=== PATIENT | male | born 1970 | race Caucasian/White ===

== ENCOUNTER 2016-12-18 18:07 | Emergency (ER) | payer OTHER ==
[2016-12-18] MEDS ORDERED: Nitroglycerin 0.4 MG Tab.SL ONE (18:13)
[2016-12-18] MEDS: Nitroglycerin 0.4 MG Tab.SL SL PRN ×2 (18:24→18:37)
--- NOTE | 2016-12-18 18:26 | EDM.PDOC ---
ED HISTORY OF PRESENT ILLNESS - General Stated Complaint: CHEST PAIN Time Seen by Provider: 12/18/16 18:07 Source of Information: Reports: Patient, EMS History Limitations: Reports: No limitations - History of Present Illness INITIAL COMMENTS - FREE TEXT/NARRATIVE: Patient arrives via ambulance with chest pain and left shoulder pain. En route he has received ASA 81 x 4, one SL nitro and 4 mg of morphine. Pt and his tell me that he arrived home from work and started feeling hot and dizzy at about 1720. He went to the bathroom and when he came out he told his he wasn't feeling well and thought he might pass out. He sat down and was holding his chest. He says it felt like an elephant was on his chest and he was short of breath. Pain at the worst was 10/10. Currently in ER it is 2/10. He feels much better right now. He says he has had blackouts occasionally (his says 1-2/year) but has never had the chest pain. He has diabetes and elevated triglycerides but no history of heart problems or MD. He has been in ER after a blackout with a concussion from falling in the past year. Glucose was 165 at home per . says he didn't blackout today as she noticed he was sitting in chair with eyes closed but talked with her throughout. He has a family history significant for polycythemia and early MD in father and grandfather. His hemoglobin runs a little high and he treates with daily aspirin. He also had a DVT in one leg two years ago after ACL surgery. - Related Data Allergies/ADRs: Allergies Allergy/AdvReac Type Severity Reaction Status Date / Time levofloxacin [From Levaquin] Allergy Confusion Verified 12/18/16 18:48 Home Meds: Home Meds Cyclobenzaprine [Flexeril] 10 mg PO BEDTIME PRN 12/31/15 [History] metFORMIN HCl [Metformin HCl ER] 500 mg PO BEDTIME 12/31/15 [History] traZODone 50 mg PO BEDTIME PRN 12/31/15 [History] Aspirin [Halfprin] 81 mg PO DAILY 07/02/16 [History] Fenofibrate Nanocrystallized [Tricor] 145 mg PO DAILY 07/02/16 [History] metFORMIN HCl [Metformin HCl] 1,000 mg PO DAILY 12/18/16 [History] Past Medical History HEENT History: Reports: Impaired vision, Other (see below) Other HEENT History: prosthetic left eye, 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3 Cardiovascular History: Reports: Blood clots/VTE/DVT, Other (see below) Other Cardiovascular History: blood clot to Rlower leg 1 year ago Neurological History: Reports: Headaches, chronic Endocrine/Metabolic History: Reports: Diabetes, type II - Past Surgical History Musculoskeletal Surgical History: Reports: Other (see below) Other Musculoskeletal Surgeries/Procedures:: achilis tendon repair Social & Family History - Family History Cardiac: Reports: CAD, [place] Other Cardiac Family History: polycythemia - Tobacco Use Smoking Status *Q: Current Every Day Smoker Years of Tobacco use: 30 Packs/Tins Daily: 0.5 Used Tobacco, but Quit: No Second Hand Smoke Exposure: No - Recreational Drug Use Recreational Drug Use: No ED ROS GENERAL - Review of Systems Review Of Systems: See Below Constitutional: Reports: malaise, diaphoresis. 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 Denies: Cough Cardiovascular: Reports: Chest pain, Lightheadedness. Denies: Syncope GI/Abdominal: Denies: Abdominal pain : Reports: no symptoms Musculoskeletal: Reports: neck pain (left), shoulder pain (left), arm pain (left ) Skin: Reports: diaphoresis. Denies: cyanosis, jaundice, mottled Neurological: Reports: Confusion (slightly at the scene; he told EMS it was November but now doesn't remember that and says it is November). 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) Ears: normal external exam, hearing grossly normal Nose: normal inspection Throat/Mouth: Normal lips, Normal voice, No airway compromise Head: atraumatic, normocephalic Neck: normal inspection, supple, non-tender, full range of motion Respiratory/Chest: no respiratory distress, lungs clear, normal breath sounds, no accessory muscle use Cardiovascular: normal peripheral pulses, regular rate, rhythm, no edema, no gallop, no JVD, no murmur Peripheral Pulses: 2+: carotid (L), carotid (R), radial (L), radial (R), posterior tibial (L), posterior tibial (R) GI/Abdominal: normal bowel sounds, soft, non tender Extremities: normal inspection, normal range of motion, non-tender, no pedal edema Neurological: alert, oriented, CN II-XII intact, normal cognition, no motor/ sensory deficits Psychiatric: normal affect, normal mood Skin Exam: Warm, Dry, Intact, Normal color, No rash Course - Orders/Labs/Meds Meds: Medications Discontinued Medications Generic Name Dose Route Start Last Admin Trade Name Vimal PRN Reason Stop Dose Admin Nitroglycerin Confirm 12/18/16 18:13 Nitrostat Administered 12/18/16 18:14 Dose 0.4 mg .ROUTE .STK-MED ONE - Re-Assessments/Exams Free Text/Narrative Re-Assessment/Exam: 12/18/16 19:10 Patient reports pain and heaviness mostly gone after nitro x 3. He still reported a tightness in left chest 3-4/10. EKG is normal. Trop is 0.06 which was drawn 30 minutes after symptom onset. Discussed this with patient and then with Dr. Webster (railroad police) and Dr. Payne (hospitalist) at [facility] in [place]. They recommend heparin bolus and metoprolol and accepted for transfer. Prior to discharge patient reports the tightness is mostly gone and the pain/ heaviness has not returned. Patient discharged in stable condition via ALS ambulance to [facility]. Departure - Departure Time of Disposition: 19:07 Disposition: DC/Tfer to Acute Hospital 02 Reason for Transfer *Q: Other (cardiac consult with possible angiogram) Condition: good, serious Clinical Impression: Chest pain Qualifiers: Chest pain type: unspecified Qualified Code(s): R07.9 - Chest pain, unspecified
[2016-12-18 18:42] LABS: CHLORIDE,CL 96 mmol/L (98-115); SODIUM,NA 134 mmol/L (136-145)
[2016-12-18] MEDS ORDERED: Heparin Sodium 5,000 Units/ML Vial IVPUSH ONE (19:04)
[2016-12-18] MEDS ORDERED: Metoprolol Tartrate 25 MG Tab PO ONE (19:05)
[2016-12-18] MEDS ORDERED: Metoprolol Tartrate 50 MG Tab ONE (19:19)
[2016-12-18 19:57] VITALS: BP 127/67
== END 2016-12-18 19:30 ==
LOC: KA.ED 18:07
DX: R07.9 Chest pain, unspecified (principal); F17.210 Nicotine dependence, cigarettes, uncomplicated; Z88.8 Allergy status to other drugs, medicaments and biological substances; Z79.82 Long term (current) use of aspirin; Z79.899 Other long term (current) drug therapy; E11.9 Type 2 diabetes mellitus without complications
CPT/HCPCS: 36415; 71010; 80048; 84484; 85025; 85379; 96374; 99285; A9270; J1644; 93005

== ENCOUNTER 2017-01-18 13:45 | Observation (INO) | payer OTHER ==
[2017-01-18] MEDS ORDERED: Aspirin 81 MG Tab.Chew PO ONE (13:52)
[2017-01-18] MEDS ORDERED: Sodium Chloride 0.9% 5 ML Syringe FLUSH PRN ×2 (13:52→15:30)
[2017-01-18] MEDS ORDERED: Nitroglycerin 2% Oint 1 GM UD Packet TOP ONE (13:52)
--- NOTE | 2017-01-18 13:54 | EDM.PDOC ---
ED HISTORY OF PRESENT ILLNESS - General Chief Complaint: Chest Pain Stated Complaint: chest pain Time Seen by Provider: 01/18/17 13:45 Source of Information: Reports: Patient, EMS History Limitations: Reports: No limitations - History of Present Illness INITIAL COMMENTS - FREE TEXT/NARRATIVE: 46 YO WM presents to ER by EMS from clinic with chest pain. Pt reports pain began at approximately 10am today. Pt reports left sided chest pain with radiation to left shoulder. Pt reports associated nausea and dizziness but denies diaphoresis or shortness of breath. pt was seen by a carton filler in [place] 1 month ago and had a stress test at that time. Pt reports he was sent home on Nitro but didn't take any this am. Pt was given nitro in clinic x 1 and reports partial relief. Symptom Onset Date: 01/18/17 Symptom Onset Time: 10:00 Timing/Duration: Reports: Day(s): (1) Severity: mild Location, General: Reports: chest Quality: Reports: Ache, Pressure Improves with: Reports: Medication Worsens with: Reports: None Associated Symptoms (General): Reports: chest pain, nausea/vomiting. 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[employer]: Reports: Nitroglycerin, See EMS Report - Related Data Allergies/ADRs: Allergies Allergy/AdvReac Type Severity Reaction Status Date / Time levofloxacin [From Levaquin] Allergy Confusion Verified 01/18/17 14:00 Home Meds: Home Meds Cyclobenzaprine [Flexeril] 10 mg PO BEDTIME PRN 12/31/15 [History] traZODone 50 mg PO BEDTIME PRN 12/31/15 [History] Aspirin [Halfprin] 162 mg PO DAILY 07/02/16 [History] Fenofibrate Nanocrystallized [Tricor] 145 mg PO DAILY 07/02/16 [History] metFORMIN HCl [Metformin HCl] 1,000 mg PO BID 12/18/16 [History] Lisinopril 5 mg PO DAILY 01/18/17 [History] Nicotine [Nicotine Patch] 1 patch TD DAILY 01/18/17 [History] atorvaSTATin [Lipitor] 40 mg PO BEDTIME 01/18/17 [History] Past Medical History HEENT History: Reports: Impaired vision, Other (see below) Other HEENT History: prosthetic left eye, 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3 Cardiovascular History: Reports: Blood clots/VTE/DVT, Other (see below) Other Cardiovascular History: blood clot to Rlower leg 1 year ago Neurological History: Reports: Headaches, chronic Endocrine/Metabolic History: Reports: Diabetes, type II - Past Surgical History Musculoskeletal Surgical History: Reports: Other (see below) Other Musculoskeletal Surgeries/Procedures:: achilis tendon repair Social & Family History - Family History Cardiac: Reports: CAD, [place] Other Cardiac Family History: polycythemia - Tobacco Use Smoking Status *Q: Current Every Day Smoker Years of Tobacco use: 30 Packs/Tins Daily: 0.5 Used Tobacco, but Quit: No Second Hand Smoke Exposure: No - Caffeine Use Caffeine Use: Reports: None - Recreational Drug Use Recreational Drug Use: No ED ROS GENERAL - Review of Systems Review Of Systems: See Below Constitutional: Reports: no symptoms HEENT: Reports: No symptoms Respiratory: Reports: No Symptoms Cardiovascular: Reports: Chest pain, Lightheadedness Endocrine: Reports: no symptoms GI/Abdominal: Reports: Nausea Musculoskeletal: Reports: no symptoms Skin: Reports: no symptoms Neurological: Reports: No Symptoms Psychiatric: Reports: No symptoms Hematologic/Lymphatic: Reports: no symptoms Immunologic: Reports: no symptoms ED EXAM, GENERAL - Physical Exam Exam: See Below Exam Limited By: No limitations General Appearance: alert, WD/WN, no apparent distress Nose: normal inspection, normal mucosa, no blood Throat/Mouth: Normal inspection, Normal lips, Normal teeth, Normal gums, Normal oropharynx, Normal voice, No airway compromise Head: atraumatic, normocephalic Neck: normal inspection, supple, non-tender, full range of motion Respiratory/Chest: no respiratory distress, lungs clear, normal breath sounds, no accessory muscle use, chest non-tender Cardiovascular: normal peripheral pulses, regular rate, rhythm, no edema, no gallop, no JVD, no murmur, no rub GI/Abdominal: normal bowel sounds, soft, non tender, no organomegaly, no distention, no abnormal bruit, no mass Back Exam: normal inspection, full range of motion, NT Extremities: normal inspection, normal range of motion, non-tender, normal capillary refill, no pedal edema Neurological: alert, oriented, CN II-XII intact, normal cognition, normal gait, normal reflexes, no motor/sensory deficits Psychiatric: normal affect, normal mood Skin Exam: Warm, Dry, Intact, Normal color, No rash Lymphatic: no adenopathy EKG INTERPRETATION EKG Date: 01/18/17 Time: 13:51 Rhythm: NSR Rate (beats/min): 88 [place]: normal P-wave: present QRS: normal ST-T: normal QT: normal Comparison: NA - no prior EKG Course - Vital Signs Last Recorded V/S: Last Vital Signs Temp 37.2 C 01/18/17 14:12 Pulse 91 01/18/17 14:12 Resp 16 01/18/17 14:12 BP 112/83 01/18/17 14:12 Pulse Ox 96 01/18/17 14:12 - Orders/Labs/Meds Orders: Active Orders 24 hr Category Date Time Status EKG Documentation Completion [RC] ASDIRECTED Care 01/18/17 13:53 Active Peripheral IV Care [RC] . DIRECTED Care 01/18/17 13:53 Active Chest 1V Frontal [CR] Stat Exams 01/18/17 13:52 Taken Sodium Chloride 0.9% [Syrex Flush] Med 01/18/17 13:52 Active 5 ml FLUSH Q8HR PRN Peripheral IV Insertion Adult [OM.PC] Routine Oth 01/18/17 13:52 Ordered EKG 12 Lead [EK] Routine Ther 01/18/17 13:53 Ordered Medication Orders Sodium Chloride (Syrex Flush) 5 ml FLUSH Q8HR PRN PRN Reason: Keep Vein Open Labs: Laboratory Tests 01/18/17 01/18/17 01/18/17 Range/Units 14:10 14:10 14:10 WBC 11.0 H (5.0-10.0) 10^3/uL RBC 6.10 H (4.50-6.00) 10^6/uL Hgb 17.8 H (13.0-17.0) g/dL Hct 53.0 H (40.0-52.0) % MCV 86.8 (82.0-92.0) fL MCH 29.2 (27.0-31.0) pg MCHC 33.7 (32.0-36.0) g/dL RDW 12.6 (11.5-14.5) % Plt Count 254 (150-300) 10^3/uL MPV 8.1 (7.4-10.4) fL Neut % (Auto) 78.2 H (50.0-70.0) % Lymph % (Auto) 14.8 L (20.0-40.0) % [place] % (Auto) 6.3 (2.0-8.0) % Eos % (Auto) 0.5 L (1.0-3.0) % Baso % (Auto) 0.2 (0.0-1.0) % Neut # (Auto) 8.6 H (2.5-7.0) 10^3/uL Lymph # (Auto) 1.6 (1.0-4.0) 10^3/uL [place] # (Auto) 0.7 (0.1-0.8) 10^3/uL Eos # (Auto) 0.1 (0.1-0.3) 10^3/uL Baso # (Auto) 0.0 (0.0-0.1) 10^3/uL PT 11.0 (8.9-11.4) SEC INR 1.1 (0.9-1.1) APTT 22.5 (20.8-31.2) SEC Sodium 136 (136-145) mmol/L Potassium 4.9 (3.3-5.3) mmol/L Chloride 97 L (98-115) mmol/L Carbon Dioxide 30.8 (21.0-32.0) mmol/L BUN 19 (6-25) mg/dL Creatinine 1.09 (0.51-1.17) mg/dL Est Cr Clr Drug Dosing 82.80 mL/min Estimated GFR (MDRD) > 60 mL/min Glucose 206 H (70-110) mg/dL Calcium 9.5 (8.7-10.3) mg/dL Total Bilirubin 0.9 (0.2-1.0) mg/dL AST 15 (15-37) U/L ALT 24 (12-78) U/L Alkaline Phosphatase 76 (46-116) IU/L Creatine Kinase 52 (26-276) U/L CK-MB (CK-2) 0.70 (0.00-4.30) ng/mL Troponin I < 0.04 (0.00-0.070) ng/mL Total Protein 7.3 (6.4-8.2) g/dL Albumin 4.10 (3.00-4.80) g/dL Meds: Medications Generic Name Dose Route Start Last Admin Trade Name Freluis PRN Reason Stop Dose Admin Sodium Chloride 5 ml 01/18/17 13:52 Syrex Flush FLUSH Q8HR PRN Keep Vein Open Discontinued Medications Generic Name Dose Route Start Last Admin Trade Name Freluis PRN Reason Stop Dose Admin Aspirin 324 mg 01/18/17 13:52 01/18/17 14:06 Aspirin PO 01/18/17 13:53 324 mg ONETIME ONE Administration Nitroglycerin 1 gm 01/18/17 13:52 01/18/17 14:07 Nitro-Bid 2% TOP 01/18/17 13:53 1 gm ONETIME ONE Administration Nitroglycerin Confirm 01/18/17 14:02 01/18/17 14:08 Nitro-Bid 2% Administered 01/18/17 14:03 Not Given Dose 1 gm .ROUTE .STK-MED ONE - Radiology Interpretation Free Text/Narrative:: CXR- NAD Departure - Departure Time of Disposition: 14:59 Disposition: Refer to Observation Condition: fair Clinical Impression: Chest pain Qualifiers: Chest pain type: unspecified Qualified Code(s): R07.9 - Chest pain, unspecified Referrals: Karina Frazier PA-C [Primary Care Provider] - - My Orders Last 24 Hours: My Active Orders 01/18/17 13:52 Chest 1V Frontal [CR] Stat Sodium Chloride 0.9% [Syrex Flush] 5 ml FLUSH Q8HR PRN Peripheral IV Insertion Adult [OM.PC] Routine 01/18/17 13:53 EKG Documentation Completion [RC] ASDIRECTED Peripheral IV Care [RC] . DIRECTED EKG 12 Lead [EK] Routine - Assessment/Plan Last 24 Hours: My Active Orders 01/18/17 13:52 Chest 1V Frontal [CR] Stat Sodium Chloride 0.9% [Syrex Flush] 5 ml FLUSH Q8HR PRN Peripheral IV Insertion Adult [OM.PC] Routine 01/18/17 13:53 EKG Documentation Completion [RC] ASDIRECTED Peripheral IV Care [RC] . DIRECTED EKG 12 Lead [EK] Routine Assessment:: 1. chest pain 2. NIDDM Plan: 1. Admit for obs and r/o AMI 2. [facility] accepted and will manage
[2017-01-18] MEDS ORDERED: Nitroglycerin 2% Oint 1 GM UD Packet ONE (14:02)
[2017-01-18 14:44] LABS: CHLORIDE,CL 97 mmol/L (98-115); SODIUM,NA 136 mmol/L (136-145)
[2017-01-18] MEDS ORDERED: Nitroglycerin 0.4 MG Tab.SL SL PRN (16:53)
[2017-01-18] MEDS ORDERED: Lidocaine 2% 100 MG/5 ML Syringe IVPUSH PRN (16:53)
[2017-01-18] MEDS ORDERED: EPINEPHrine 1:10,000 1 MG/10 ML Syringe IVPUSH PRN (16:53)
[2017-01-18] MEDS ORDERED: Atropine 0.1 MG/ML 10 ML Syringe IVPUSH PRN (16:53)
[2017-01-18] MEDS ORDERED: Acetaminophen 325 MG Tab PO PRN (19:34)
[2017-01-18] MEDS ORDERED: Acetaminophen 650 MG Tab.ER ONE (19:44)
[2017-01-18] MEDS ORDERED: Cyclobenzaprine 5 MG Tab PO PRN (21:35)
[2017-01-18] MEDS ORDERED: traZODone 50 MG Tab PO PRN (21:35)
[2017-01-18] MEDS ORDERED: Ibuprofen 600 MG Tab PO PRN (21:50)
[2017-01-18] MEDS ORDERED: Fenofibrate Nanocrystallized 145 MG Tab PO SCH (22:30)
[2017-01-18] MEDS ORDERED: atorvaSTATin 10 MG Tab ONE (22:40)
[2017-01-18] MEDS: metFORMIN 500 MG Tab PO SCH (22:43)
[2017-01-18] MEDS ORDERED: atorvaSTATin 40 MG Tab PO SCH (22:45)
[2017-01-19 06:59] VITALS: BP 110/73
[2017-01-19] MEDS ORDERED: metFORMIN 500 MG Tab PO SCH (08:00)
[2017-01-19] MEDS: metFORMIN 500 MG Tab PO SCH (08:51)
[2017-01-19] MEDS ORDERED: Aspirin 81 MG Tab.EC PO SCH (09:00)
[2017-01-19] MEDS ORDERED: Lisinopril 5 MG Tab PO SCH (09:00)
[2017-01-19] MEDS ORDERED: Nicotine 7 MG/24 Hr Patch TOP SCH (09:00)
[2017-01-19] MEDS ORDERED: Fenofibrate Nanocrystallized 145 MG Tab PO SCH ×2 (09:00→21:00)
--- NOTE | 2017-01-19 09:26 | PCM.HP ---
H&P History of Present Illness - General Date of Service: 01/19/17 Source of Information: Old records, Provider, RN History Limitations: Reports: No limitations - History of Present Illness Quality: Reports: Dull Chest Pain Score (Numeric/FACES): 0 - Related Data Allergies/Adverse Reactions: Allergies Allergy/AdvReac Type Severity Reaction Status Date / Time levofloxacin [From Levaquin] Allergy Confusion Verified 01/18/17 14:00 Home Medications: Home Meds Cyclobenzaprine [Flexeril] 10 mg PO BEDTIME PRN 12/31/15 [History] traZODone 50 - 100 mg PO BEDTIME PRN 12/31/15 [History] Fenofibrate Nanocrystallized [Tricor] 145 mg PO DAILY 07/02/16 [History] Lisinopril 5 mg PO DAILY 01/18/17 [History] Nicotine [Nicotine Patch] 14 mg TD DAILY 01/18/17 [History] atorvaSTATin [Lipitor] 40 mg PO BEDTIME 01/18/17 [History] Aspirin [Halfprin] 81 mg PO DAILY #90 01/19/17 [Rx] Nitroglycerin [Nitrostat] 0.4 mg SL Q5M PRN 01/19/17 [History] metFORMIN HCl [Metformin HCl ER] 1,000 mg PO BIDMEALS 01/19/17 [History] Past Medical History HEENT History: Reports: Impaired vision, Other (see below) Other HEENT History: prosthetic left eye, 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3 Cardiovascular History: Reports: Blood clots/VTE/DVT, High cholesterol, Hypertension, [place], Other (see below) Other Cardiovascular History: blood clot to Rlower leg 1 year ago; hx of PE Neurological History: Reports: Headaches, chronic Endocrine/Metabolic History: Reports: Diabetes, type II - Past Surgical History HEENT Surgical History: Reports: None Musculoskeletal Surgical History: Reports: Arthroscopic procedure, Other (see below) Other Musculoskeletal Surgeries/Procedures:: achilis tendon repair; bicep and rotater cuff repair Social & Family History - Family History Family Medical History: Noncontributory Cardiac: Reports: CAD, [place] Other Cardiac Family History: polycythemia - Tobacco Use Smoking Status *Q: Current Every Day Smoker Years of Tobacco use: 30 Packs/Tins Daily: 0.5 Used Tobacco, but Quit: No Second Hand Smoke Exposure: No - Caffeine Use Caffeine Use: Reports: Soda - Recreational Drug Use Recreational Drug Use: No H&P Review of Systems - Review of Systems: Review Of Systems: See Below Gastrointestinal: Reports: Diarrhea (he gets diarrhea after not having eating for any lengthy periord of time. ) Genitourinary: Reports: no symptoms Musculoskeletal: Reports: no symptoms Skin: Reports: no symptoms Psychiatric: Reports: no symptoms Exam - Exam Exam: See Below - Vital Signs Vital Signs: Last Vital Signs Temp 96.4 F 01/19/17 06:59 Pulse 80 01/19/17 06:59 Resp 16 01/19/17 06:59 BP 110/73 01/19/17 08:52 Pulse Ox 99 01/19/17 06:59 Weight: 173 lb - Exam General: alert, oriented, 4 Neck: supple, trachea midline, 2 Lungs: Clear to auscultation, Normal respiratory effort - Patient Data Lab Results last 24 hrs: Laboratory Results - last 24 hr 01/18/17 01/19/17 Range/Units 21:09 06:36 POC Glucose 183 H 195 H (74-106) mg/dl Result Diagrams: 01/18/17 14:10 01/18/17 14:10 *Q Meaningful Use (ADM) - VTE *Q VTE Criteria *Q: - Stroke *Q Stroke Criteria *Q: - AMI *Q AMI Criteria *Q: Problem List Initiated/Reviewed/Updated: Yes Orders Last 24hrs: Active Orders 24 hr Category Date Time Status Blood Glucose Check, Bedside [RC] 0700,1700 Care 01/18/17 23:27 Active Acetaminophen [Tylenol] Med 01/18/17 19:34 Active 325 - 650 mg PO Q4H PRN Aspirin [Halfprin] Med 01/19/17 09:00 Active 162 mg PO DAILY Atropine [Atropine 0.1 MG/ML] Med 01/18/17 16:53 Active 0 mg IVPUSH ASDIRECTED PRN Cyclobenzaprine [Flexeril] Med 01/18/17 21:35 Active 10 mg PO BEDTIME PRN EPINEPHrine [EPINEPHrine 1:10,000] Med 01/18/17 16:53 Active 1 mg IVPUSH ASDIRECTED PRN Fenofibrate Nanocrystallized [Tricor] Med 01/19/17 21:00 Active 145 mg PO BEDTIME Ibuprofen [Motrin] Med 01/18/17 21:50 Active 600 mg PO Q6H PRN Lidocaine 2% [Xylocaine 2%] Med 01/18/17 16:53 Active 0 mg IVPUSH ASDIRECTED PRN Lisinopril [Prinivil] Med 01/19/17 09:00 Active 5 mg PO DAILY Nicotine [Habitrol] Med 01/19/17 09:00 Active 7 mg TOP DAILY Nitroglycerin [Nitrostat] Med 01/18/17 16:53 Active 0.4 mg SL ASDIRECTED PRN atorvaSTATin [Lipitor] Med 01/18/17 22:45 Active 40 mg PO BEDTIME metFORMIN [Glucophage] Med 01/18/17 22:45 Active 1,000 mg PO BIDMEALS traZODone Med 01/18/17 21:35 Active 50 mg PO BEDTIME PRN Medication Orders Acetaminophen (Tylenol) 325 - 650 mg PO Q4H PRN PRN Reason: Pain Last Admin: 01/18/17 20:00 Dose: 650 mg Aspirin (Halfprin) 162 mg PO DAILY [facility] Last Admin: 01/19/17 08:52 Dose: 162 mg Atorvastatin Calcium (Lipitor) 40 mg PO BEDTIME [facility] Last Admin: 01/18/17 22:45 Dose: 40 mg Atropine Sulfate (Atropine 0.1 Mg/Ml) 0 mg IVPUSH ASDIRECTED PRN PRN Reason: Heart Cyclobenzaprine HCl (Flexeril) 10 mg PO BEDTIME PRN PRN Reason: Pain Epinephrine HCl (Epinephrine 1:10,000) 1 mg IVPUSH ASDIRECTED PRN PRN Reason: Heart Fenofibrate (Tricor) 145 mg PO BEDTIME [facility] Ibuprofen (Motrin) 600 mg PO Q6H PRN PRN Reason: Headache Last Admin: 01/18/17 22:05 Dose: 600 mg Lidocaine HCl (Xylocaine 2%) 0 mg IVPUSH ASDIRECTED PRN PRN Reason: Heart Lisinopril (Prinivil) 5 mg PO DAILY [facility] Last Admin: 01/19/17 08:52 Dose: 5 mg Metformin HCl (Glucophage) 1,000 mg PO BIDMEALS [facility] Last Admin: 01/19/17 08:51 Dose: 1,000 mg Admin: 01/18/17 22:43 Dose: 1,000 mg Nicotine (Habitrol) 7 mg TOP DAILY [facility] Last Admin: 01/19/17 08:53 Dose: Not Given Nitroglycerin (Nitrostat) 0.4 mg SL ASDIRECTED PRN PRN Reason: Heart Sodium Chloride (Syrex Flush) 5 ml FLUSH Q8HR PRN PRN Reason: Keep Vein Open Last Admin: 01/18/17 22:08 Dose: 5 ml Trazodone HCl (Trazodone) 50 mg PO BEDTIME PRN PRN Reason: Sleep
--- NOTE | 2017-01-19 13:58 | HP ---
This is an H and P and also a discharge summary on this patient. CHIEF COMPLAINT: Had chest pains yesterday. Chest pain-free now. HISTORY OF PRESENT ILLNESS: This 46-year-old patient with significant cardiovascular comorbidities, family history along with modifiable risk factors, presented to the [facility] yesterday morning with some chest pains. He stated he was driving in a car. However, his H and P from the [facility] states that he was at home resting. Anyway, he started having some left anterior chest pain radiating into his shoulders and arm. He had no concomitant shortness of breath. He did not take a nitroglycerin as he has had cardiac problems in the past. When he came to the [facility], EKG was done. There was some suspicion and so, he was sent over to the emergency room for further evaluation and workup. He was placed on telemetry and admitted for rule out AK on telemetry unit. Next, the patient was hospitalized in [facility] approximately one month ago for very similar chest pain. He had a Cardiolite stress test, an echo which was negative. However, the patient states that the physician told him he definitely had a myocardial infarction. However, this is debatable. He does have type 2 diabetes, hyperlipidemia. He does have anxiety. However, according to him and his spouse, it is well controlled. He does have a high-stress job. He is a type-A personality. In the ED, he was given some nitroglycerin paste. He said, over the time his chest pain almost completely resolved. The patient was hospitalized on 12/18 for very similar pain. He has described at that time that he had an elephant sitting on his chest with stabbing sensation, this was nonexertional. He did call an ambulance, and they gave a morphine and nitroglycerin which resolved his pain. He came back later here at the [facility] where he started having more chest pain. At that time, he was only given nitroglycerin and again, his chest pain got better. The patient does have significant family history with family members had before age 50 due to myocardial infarctions, which his father at age 60 due to heart attack. He is quite active and he actually is in the gym frequently, on treadmills without having any difficulties. PAST MEDICAL HISTORY: Hyperlipidemia; insomnia; diabetes mellitus type 2, uncontrolled, however improving; tobacco use, however much improved; polycythemia; history of rotator cuff tear; history of acute DVT. PAST SURGICAL HISTORY: Two rotator cuff tendon repair, excisional biopsy. SIGNIFICANT FAMILY HISTORY: Father early due to cardiac disease. SOCIAL HISTORY: Tobacco use: The patient uses chew with cayenne pepper. He is on nicotine patch. Alcohol use: Yes. Code status: Full code. ALLERGIES: Levaquin which gives him jitteriness, but light, with which he gets difficulty breathing. 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 REVIEW OF SYSTEMS: GENERAL: He is afebrile. He has no pain. CONSTITUTIONAL: Negative for any fatigue, malaise, weight gain, or weight loss. HEENT: No hearing loss. No sore throat. HEMATOLOGICAL: He is negative for any bleeding, but he does have a history of polycythemia. RESPIRATORY: No cough. No shortness of breath. CARDIOVASCULAR: No chest pain now. No radiating symptoms. GASTROINTESTINAL: He has no abdominal pain. No black or bloody stools. No change in bowel habits. GENITOURINARY: No dysuria. No trouble voiding. No hematuria. MUSCULOSKELETAL: Negative for any joint pain or any joint swelling. NEUROLOGICAL: No dizziness. PHYSICAL EXAMINATION: VITAL SIGNS: The patient has BMI of 26. Temperature is 96.4, blood pressure 110/73, heart rate 85, O2 sats 99 with a respiratory rate of 16. CV: Regular rate and rhythm. No murmur. No change in heart rhythm in lateral recumbent. LUNGS: Clear to auscultation. ABDOMEN: Soft, nontender. Good bowel tones. RECTAL: Deferred. EXTREMITIES: He has good radial pulses. NECK: Supple. No carotid bruit. NEUROLOGICAL: Cranial nerves, good. He has no edema. LABORATORY DATA: White count 11.0; hemoglobin 17.8; hematocrit 53; percent of neutrophils 78%, slightly elevated. INR 1.1. Sodium and potassium are normal. Chloride 97 and slightly low. Creatinine 1.09, creatinine clearance 82.8, glucose 195. Calcium, AST, ALT and alkaline phosphatase, normal. CK x1 is normal. Albumin 4.10, total protein 7.3. OTHER DIAGNOSTICS: Cardiolite treadmill one day imaging, dated 12/19: Basically essential normal stress. HOME MEDICATIONS: Nitroglycerin as needed, trazodone 50-100 mg p.o. at bedtime p.r.n., nicotine patch 14 mg transdermal daily, metformin 1 g p.o. b.i.d. with meals, Lipitor 40 mg at bedtime, lisinopril 5 mg p.o. daily, fenofibrate 145 mg p.o. daily, Flexeril 10 mg p.o. bedtime p.r.n., aspirin came in at 162 mg p.o. daily. HOSPITAL COURSE: The patient's hospital course was quite uneventful. He was on telemetry this morning when I discharged him. I did a mini stress, having him walk around with telemetry. No PVCs. No aberrancy. No chest pain. No shortness of breath. Vital signs are stable. He did not need any nitroglycerin. MEDICATION CHANGES/ADJUSTMENTS: Reduce aspirin from 162 to 81 mg p.o. daily with food. He can continue on all his other home medications. IMPRESSION: 1. Atypical chest pain, doubtful if cardiac etiology. However, it is concerning that nitroglycerin is improving on him. However, with recent treadmill Cardiolite stress test, aggressive risk factor modification was recommended to reduce his overall stress. Tobacco cessation. 2. Diabetes mellitus type 2, uncontrolled. Recent A1c, 8.9. However, family is stating this is improving. He did admit to coming off his diet. Continue with lisinopril. 3. Hyperlipidemia/hypertriglyceridemia. He is on fenofibrate and Lipitor 40 mg at bedtime. Recommend high-intensity statin and close followup with PCP. DISPOSITION: The patient will be discharged from the hospital. He is in observation. He is to take his nitroglycerin as needed. He will follow with the primary care provider and consult Pharmacy to go over all his medications and give the patient some education. I did suspect that patient does have high level of stress, however he feels this is under control. The patient may benefit from as-needed medication for this. We will see how he does on followup. At this time, he does not feel that it is warranted. If the patient does have to take nitroglycerin, he is to consult his medical provider or seek medical care right away. MEDICAL DECISION MAKIN minutes were spent on this discharge planning, preparing documents, educating patient and consulting with pharmacy. /[id number]/MODL
[2017-01-19] MEDS ORDERED: atorvaSTATin 40 MG Tab PO SCH (21:00)
== END 2017-01-19 10:15 | disposition home or self-care (01) ==
LOC: KA.ED 13:45 → KA.MS 15:40 → KA.ED 15:50
PROVIDERS: ADMIT Physician Assistant Medical; ATTEND Nurse Practitioner Family
DX: R07.89 Other chest pain (principal); E11.9 Type 2 diabetes mellitus without complications; E78.5 Hyperlipidemia, unspecified; Z88.1 Allergy status to other antibiotic agents; Z98.890 Other specified postprocedural states; Z72.0 Tobacco use; Z79.82 Long term (current) use of aspirin; Z79.84 Long term (current) use of oral hypoglycemic drugs; F17.210 Nicotine dependence, cigarettes, uncomplicated
CPT/HCPCS: 36415; 71010; 80053; 82550; 82553; 82962; 84484; 85025; 85610; 85730; 99285; A9270; 93005; G0378

== ENCOUNTER 2019-03-02 18:07 | Emergency (ER) | payer BC ==
[2019-03-02] MEDS ORDERED: Sodium Chloride 0.9% 10 ML Syringe FLUSH PRN (18:17)
--- NOTE | 2019-03-02 18:28 | EDM.PDOC ---
ED HPI GENERAL MEDICAL PROBLEM - General Chief Complaint: Cardiovascular Problem Stated Complaint: CHEST PAIN Time Seen by Provider: 03/02/19 18:12 Source of Information: Reports: Patient History Limitations: Reports: No Limitations - History of Present Illness INITIAL COMMENTS - FREE TEXT/NARRATIVE: Patient is a 48-year-old gentleman who presents to the emergency Department this evening via private vehicle for a complaint of chest pain. Patient describes chest pain as aching, with some shooting sensation toward his left jaw. Patient states that he forgot to take his Cardizem medication last 2 days. States he was running errands today in an air-conditioned vehicle and not outside in the heat, and developed a left-sided chest sensation. When he got home late this afternoon pain seemed to radiate to his left neck. His is a nurse here at the clinic and she had him take 1 nitroglycerin. He was given a little relief with the nitroglycerin, so she had him take another nitroglycerin. Pain then subsided, and they decided to come to emergency department for evaluation. Patient states he did feel nauseous during the episode but did not become diaphoretic, dizzy, or developed headache. Patient denies fever, upper respiratory symptoms, abdominal pain, out of country travel , lower extremity edema, or any trauma. 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: Nitroglycerin (2) chest pain Pain Score (Numeric/FACES): 7 - Related Data Allergies Allergy/AdvReac Type Severity Reaction Status Date / Time levofloxacin [From Levaquin] Allergy Confusion Verified 03/02/19 18:40 maltose Allergy Difficulty Verified 03/02/19 18:40 Breathing Home Meds: Home Meds Cyclobenzaprine [Flexeril] 10 mg PO BEDTIME PRN 12/31/15 [History] traZODone 100 mg PO BEDTIME PRN 12/31/15 [History] Fenofibrate Nanocrystallized [Tricor] 145 mg PO DAILY 07/02/16 [History] Lisinopril 5 mg PO DAILY 01/18/17 [History] Aspirin [Halfprin] 81 mg PO DAILY #90 01/19/17 [Rx] Nitroglycerin [Nitrostat] 0.4 mg SL Q5M PRN 01/19/17 [History] metFORMIN HCl [Metformin ER Osmotic] 1,000 mg PO BIDMEALS 01/19/17 [History] Diltiazem HCl [Cartia Xt] 120 mg PO DAILY 08/19/18 [History] Fish Oil/Holmen-3 Fatty Acids [Fish Oil 1,000 MG] 1,000 mg PO BID 08/19/18 [ History] Non-Formulary Medication [NF Drug] 1 each INJECT WEEKLY 08/19/18 [History] Ubidecarenone/Vitamin E [Co Q-10 50 MG Softgel] 1 cap PO DAILY 08/19/18 [History ] glipiZIDE [Glipizide ER] 5 mg PO BID 08/19/18 [History] Rosuvastatin Calcium 20 mg PO DAILY 03/02/19 [History] Past Medical History HEENT History: Reports: Impaired Vision, Other (See Below) Other HEENT History: prosthetic left eye, 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3 Cardiovascular History: Reports: Blood Clots/VTE/DVT, High Cholesterol, Hypertension, CT, Other (See Below) Other Cardiovascular History: blood clot to Rlower leg 1 year ago; hx of PE Neurological History: Reports: Headaches, Chronic Endocrine/Metabolic History: Reports: Diabetes, Type II - Past Surgical History Musculoskeletal Surgical History: Reports: Arthroscopic Procedure, Other (See Below) Social & Family History - Family History Family Medical History: Noncontributory Cardiac: Reports: CAD, CT Other Cardiac Family History: polycythemia - Caffeine Use Caffeine Use: Reports: Soda ED ROS GENERAL - Review of Systems Review Of Systems: ROS reveals no pertinent complaints other than HPI. Constitutional: Reports: No Symptoms HEENT: Reports: No Symptoms Respiratory: Reports: No Symptoms Cardiovascular: Reports: Chest Pain Endocrine: Reports: No Symptoms GI/Abdominal: Reports: Nausea : Reports: No Symptoms Musculoskeletal: Reports: No Symptoms Skin: Reports: No Symptoms Neurological: Reports: No Symptoms Psychiatric: Reports: No Symptoms Hematologic/Lymphatic: Reports: No Symptoms Immunologic: Reports: No Symptoms ED EXAM, GENERAL - Physical Exam Exam: See Below Exam Limited By: No Limitations General Appearance: Alert, WD/WN, No Apparent Distress Eye Exam: Bilateral Eye: Normal Inspection Nose: Normal Inspection, Normal Mucosa, No Blood Throat/Mouth: Normal Inspection, Normal Oropharynx, No Airway Compromise Head: Atraumatic, Normocephalic Neck: Normal Inspection, Supple, Non-Tender, Full Range of Motion. No: Lymphadenopathy (L), Lymphadenopathy (R) Respiratory/Chest: No Respiratory Distress, Lungs Clear, Normal Breath Sounds, No Accessory Muscle Use, Chest Non-Tender Cardiovascular: Normal Peripheral Pulses, Regular Rate, Rhythm, No Murmur, No Rub GI/Abdominal: Normal Bowel Sounds, Soft, Non-Tender, No Organomegaly, No Distention, No Abnormal Bruit, No Mass Back Exam: Normal Inspection. No: CVA Tenderness (L), CVA Tenderness (R) Extremities: Normal Inspection, No Pedal Edema Neurological: Alert, Oriented, Normal Cognition Psychiatric: Normal Affect, Normal Mood Skin Exam: Warm, Dry, Intact, Normal Color, No Rash Lymphatic: No Adenopathy EKG INTERPRETATION EKG Date: 03/02/19 Time: 18:18 Rhythm: NSR Rate (Beats/Min): 84 [place]: Normal P-Wave: Present QRS: Normal ST-T: Normal QT: Normal Comparison: No Change Course - Vital Signs Last Recorded V/S: Last Vital Signs Temp 98.8 F 03/02/19 18:10 Pulse 86 03/02/19 18:54 Resp 16 03/02/19 18:54 BP 131/63 03/02/19 18:54 Pulse Ox 98 03/02/19 18:54 - Orders/Labs/Meds Orders: Active Orders 24 hr Category Date Time Status EKG Documentation Completion [RC] ASDIRECTED Care 03/02/19 18:17 Ordered Peripheral IV Care [RC] . DIRECTED Care 03/02/19 18:17 Active Chest 1V Frontal [CR] Stat Exams 03/02/19 18:16 Ordered Sodium Chloride 0.9% [Saline Flush] Med 03/02/19 18:17 Ordered 10 ml FLUSH Q8HR PRN Peripheral IV Insertion Adult [OM.PC] Routine Oth 03/02/19 18:17 Ordered EKG 12 Lead [EK] Routine Ther 03/02/19 18:16 Ordered Medication Orders Sodium Chloride (Saline Flush) 10 ml FLUSH Q8HR PRN PRN Reason: keep vein open Labs: Laboratory Tests 03/02/19 03/02/19 03/02/19 Range/Units 18:17 18:17 18:17 WBC 7.89 (5.00-10.00) 10^3/uL RBC 5.28 (4.50-6.00) 10^6/uL Hgb 15.8 (13.0-17.0) g/dL Hct 44.7 (40.0-52.0) % MCV 84.7 (82.0-92.0) fL MCH 29.9 (27.0-31.0) pg MCHC 35.3 (32.0-36.0) g/dL RDW 11.9 (11.5-14.5) % Plt Count 279 (150-400) 10^3/uL MPV 9.1 (7.4-10.4) fL Immature Gran % (Auto) 0.3 (0.0-5.0) % Neut % (Auto) 65.1 (50.0-70.0) % Lymph % (Auto) 21.3 (20.0-40.0) % Bullitt % (Auto) 9.6 H (2.0-8.0) % Eos % (Auto) 3.2 H (1.0-3.0) % Baso % (Auto) 0.5 (0.0-1.0) % Immature Gran # (Auto) 0.02 (0.00-0.50) 10^3/uL Neut # (Auto) 5.14 (2.50-7.00) 10^3/uL Lymph # (Auto) 1.68 (1.00-4.00) 10^3/uL [place]itt # (Auto) 0.76 (0.10-0.80) 10^3/uL Eos # (Auto) 0.25 (0.10-0.30) 10^3/uL Baso # (Auto) 0.04 (0.00-0.10) 10^3/uL PT 10.3 (8.9-11.4) SEC INR 1.0 (0.9-1.1) APTT 22.8 L (23.1-31.3) SEC Sodium 138 (136-145) mmol/L Potassium 4.1 (3.3-5.3) mmol/L Chloride 103 (98-115) mmol/L Carbon Dioxide 25.0 (21.0-32.0) mmol/L Anion Gap 14.1 (5-15) mmol/L BUN 13 (6-25) mg/dL Creatinine 0.90 (0.51-1.17) mg/dL Est Cr Clr Drug Dosing 94.87 mL/min Estimated GFR (MDRD) > 60 mL/min Glucose 164 H (75 - 99) mg/dL Calcium 8.7 (8.7-10.3) mg/dL Total Bilirubin 0.3 (0.2-1.0) mg/dL AST 22 (15-37) U/L ALT 23 (12-78) U/L Alkaline Phosphatase 64 (46-116) IU/L CK-MB (CK-2) 1.30 (0.00-4.30) ng/mL Troponin I 0.07 (0.00-0.070) ng/mL Total Protein 6.5 (6.4-8.2) g/dL Albumin 3.48 (3.00-4.80) g/dL Lipase 83 (73-393) U/L Meds: Medications Generic Name Dose Route Start Last Admin Trade Name Freq PRN Reason Stop Dose Admin Sodium Chloride 10 ml 03/02/19 18:17 Saline Flush FLUSH Q8HR PRN keep vein open - Radiology Interpretation Free Text/Narrative:: Chest x-ray shows no acute cardiopulmonary process - Re-Assessments/Exams Free Text/Narrative Re-Assessment/Exam: 03/02/19 19:21 Patient afebrile, vital signs stable, chest discomfort relieved. Discussed case in depth with Dr. Doan, offered observation status to patient, but patient refused. Patient will be scheduled for stress test this week. Patient will return to the ER if symptoms continue or worsen. Departure - Departure Time of Disposition: 19:22 Disposition: Home, Self-Care 01 Condition: Good Clinical Impression: Chest pain Qualifiers: Chest pain type: unspecified Qualified Code(s): R07.9 - Chest pain, unspecified Instructions: Exercise Stress Test, [id number], Nonspecific Chest Pain, Easy- to-Read Referrals: Renata Ruano MD [Primary Care Provider] - Forms: ED Department Discharge Additional Instructions: Contact Dr. Doan's office tomorrow for scheduled time of stress test this week. Return to emergency department if symptoms continue or worsen. - My Orders Last 24 Hours: My Active Orders 03/02/19 18:16 Chest 1V Frontal [CR] Stat EKG 12 Lead [EK] Routine 03/02/19 18:17 EKG Documentation Completion [RC] ASDIRECTED Peripheral IV Care [RC] . DIRECTED Sodium Chloride 0.9% [Saline Flush] 10 ml FLUSH Q8HR PRN Peripheral IV Insertion Adult [OM.PC] Routine - Assessment/Plan Last 24 Hours: My Active Orders 03/02/19 18:16 Chest 1V Frontal [CR] Stat EKG 12 Lead [EK] Routine 03/02/19 18:17 EKG Documentation Completion [RC] ASDIRECTED Peripheral IV Care [RC] . DIRECTED Sodium Chloride 0.9% [Saline Flush] 10 ml FLUSH Q8HR PRN Peripheral IV Insertion Adult [OM.PC] Routine Assessment:: Atypical chest pain Plan: Follow-up at clinic for scheduling of stress test
[2019-03-02 18:59] LABS: ANION GAP 14.1 mmol/L (5-15); CHLORIDE,CL 103 mmol/L (98-115); SODIUM,NA 138 mmol/L (136-145)
--- NOTE | 2019-03-02 19:46 | CR ---
[id number] RAD/RAD Chest PA or AP 1V EXAM: SINGLE VIEW CHEST. INDICATION: CHEST PAIN COMPARISON: CORRELATION IS MADE WITH THE EXAM OF JANUARY 18, 2017. FINDINGS: The lungs are clear. The cardiomediastinal contour is stable. IMPRESSION: STABLE CHEST. Abdelrahman Guaman MD 03/02/19 [id number] Thank you for allowing us to participate in the care of your patient.
[2019-03-02 19:56] VITALS: BP 120/60
== END 2019-03-02 19:25 | disposition home or self-care (01) ==
LOC: KA.ED 18:07
DX: R07.89 Other chest pain (principal); I10 Essential (primary) hypertension; I25.2 Old myocardial infarction; E11.9 Type 2 diabetes mellitus without complications; Z88.1 Allergy status to other antibiotic agents; Z79.82 Long term (current) use of aspirin; Z79.84 Long term (current) use of oral hypoglycemic drugs; Z79.899 Other long term (current) drug therapy
CPT/HCPCS: 71045; 80053; 82553; 83690; 84484; 85025; 85610; 85730; 93005; 99285-25